=== PATIENT | male | born 1960 | race Caucasian/White ===

== ENCOUNTER 2024-05-04 14:21 | Outpatient (CLI) | payer BC, SELFPAY | END 2024-05-04 14:22 | disposition home or self-care (01) | PROVIDERS: PCP Family Medicine; Visit Provider Family Medicine | DX: I10 Essential (primary) hypertension (principal); R97.20 Elevated prostate specific antigen [PSA] | CPT/HCPCS: 80048; 84153 ==

== ENCOUNTER 2024-11-09 10:01 | Outpatient (CLI) | payer BC, SELFPAY | END 2024-11-09 10:02 | disposition home or self-care (01) | LOC: NFLDREF 10:01 | PROVIDERS: PCP Family Medicine; Visit Provider Family Medicine | DX: Z01.818 Encounter for other preprocedural examination (principal) | CPT/HCPCS: 80048 ==